=== PATIENT | female | born 1980 | race Caucasian/White ===

== ENCOUNTER 2019-03-11 06:28 | Emergency (ER) | payer OTHER ==
[~2019-03-11] VITALS: Ht 160 cm; Wt 63.6 kg
[2019-03-11 06:34] VITALS: Ht 160 cm; Wt 63.6 kg
[2019-03-11 07:54] VITALS: BP 125/74
== END 2019-03-11 08:22 | disposition home or self-care (01) ==
LOC: ED 06:28
DX: R53.83 Other fatigue (principal); F41.9 Anxiety disorder, unspecified